=== PATIENT | female | born 1990 | race Caucasian/White ===

== ENCOUNTER 2024-02-12 15:37 | Emergency (ER) | payer OTHER ==
[~2024-02-12] VITALS: Ht 157.5 cm; Wt 59.0 kg
[2024-02-12 17:26] LABS: HEMOGLOBIN 12.4 g/dL (12.0-15.00); MEAN CELL VOLUME 93.2 fL (80.00-100.00); MEAN CORPUSCULAR HEMOGLOBIN 31.2 pg (27.00-32.0); MEAN CORPUSCULAR HGB CONC 33.5 g/dl (32.0-36.0); PLATELET COUNT 256 K/uL (150-450); RED BLOOD COUNT 3.97 M/uL (4.00-6.00); RED CELL DISTRIBUTION WIDTH 13.2 % (11.5-14.5)
[2024-02-12] MEDS ORDERED: KETOROLAC TROMETHAMINE 30 MG VIAL IM STA (18:46)
[2024-02-12] MEDS ORDERED: KETOROLAC TROMETHAMINE 30 MG VIAL ONE (18:52)
== END 2024-02-12 19:57 | disposition home or self-care (01) ==
LOC: ER 15:38
PROVIDERS: General Practice
DX: M79.672 Pain in left foot (principal)
CPT/HCPCS: 36415; 73630; 96372; 99283; J1885